=== PATIENT | female | born 1985 | race Two or more races ===

== ENCOUNTER 2023-06-17 20:01 | Emergency (ER) | payer OTHER | END 2023-06-17 20:37 | disposition home or self-care (01) | LOC: MW.ED 20:01 | DX: K11.6 Mucocele of salivary gland (principal) | CPT/HCPCS: 99282; 99283 ==

== ENCOUNTER 2023-08-24 04:20 | Emergency (ER) | payer OTHER ==
[2023-08-24 04:59] LABS: APPEARANCE,URINE CLOUDY; COLOR,URINE BROWN; GLUCOSE,URINE NEGATIVE (NEGATIVE); KETONES,URINE NEGATIVE (NEGATIVE); LEUKOCYTE ESTERASE,URINE MODERATE (NEGATIVE); NITRITE,URINE POSITIVE (NEGATIVE); OCCULT BLOOD,URINE LARGE (NEGATIVE); PH,URINE 6.5 (5.0-8.0); PROTEIN,URINE 100 mg/dL (NEGATIVE)
[2023-08-24 05:05] LABS: BACTERIA,URINE FEW (NEGATIVE); BILIRUBIN,URINE SMALL (NEGATIVE); EPITHELIAL CELLS,URINE FEW (NONE-FEW); RBC,URINE TOO NUMEROUS TO CT (0-2/HPF); WBC,URINE 20-25 (0-5/HPF)
[2023-08-24] MEDS: Cephalexin 500 MG Cap PO ONE (05:30)
[2023-08-24] MEDS: Phenazopyridine 200 MG Tab PO ONE (05:30)
== END 2023-08-24 05:34 | disposition home or self-care (01) ==
LOC: MW.ED 04:20
DX: N39.0 Urinary tract infection, site not specified (principal)
CPT/HCPCS: 81001; 81025; 99283; A9270

== ENCOUNTER 2025-06-20 21:48 | Emergency (ER) | payer OTHER ==
[2025-06-21] MEDS: Ketorolac 30 MG/ML SDV IVPUSH ONE (00:43)
[2025-06-21 00:50] LABS: BASOPHILS ABSOLUTE AUTO 0.01 K/uL (0.00-0.20); BASOPHILS PERCENT AUTO 0.1 % (0.0-1.0); EOSINOPHILS ABSOLUTE AUTO 0.12 K/uL (0.00-0.45); EOSINOPHILS PERCENT AUTO 1.5 % (0.0-6.0); IMMATURE GRAN ABSOLUTE AUTO 0.02 K/uL (0.00-0.05); IMMATURE GRAN PERCENT AUTO 0.2 % (0.0-0.4); LYMPHOCYTES ABSOLUTE AUTO 2.36 K/uL (1.00-4.80); LYMPHOCYTES PERCENT AUTO 29.1 % (24.0-44.0); MEAN PLATELET VOLUME 9.0 fL (9.4-12.3); MONOCYTES ABSOLUTE AUTO 0.78 K/uL (0.00-0.80); MONOCYTES PERCENT AUTO 9.6 % (0.0-8.0); NEUTROPHILS ABSOLUTE AUTO 4.82 K/uL (1.80-7.70); NEUTROPHILS PERCENT AUTO 59.5 % (41.0-71.0); NRBC ABSOLUTE 0.00 K/uL (0.00-0.02); NRBC PERCENT 0.0 /100WBC (0.0-0.2); PLATELET COUNT,PLT 347 K/uL (150-400); RED BLOOD CELL COUNT 5.01 M/uL (4.10-5.30); WHITE BLOOD CELL COUNT,WBC 8.11 K/uL (3.9-11.3)
[2025-06-21 01:04] LABS: INR 1.04 (0.86-1.11); PTT,PARTIAL THROMBOPLSTIN TIME 27.7 SEC (23.9-30.7)
[2025-06-21 01:27] LABS: A/G RATIO 0.9 (0.9-1.6); ALANINE AMINOTRANSFERASE,ALT 30.0 IU/L (14-63); ASPARTATE AMNIOTRANSFERASE,AST 20.0 IU/L (15-37); BILIRUBIN TOTAL 0.4 mg/dL (0.2-1.0); BLOOD UREA NITROGEN,BUN 12.0 mg/dL (7.0-18.0); CARBON DIOXIDE,CO2 28.9 mmol/L (21.0-32.0); CHLORIDE,CL 102.0 mmol/L (98-107); CREATININE 0.8 mg/dL (0.6-1.0); EST CRCL DRUG DOSING (CG) 89.26 mL/min; GLUCOSE RANDOM 98.0 mg/dL (74-106); POTASSIUM,K 3.5 mmol/L (3.5-5.1); PROTEIN TOTAL,TP 7.4 g/dL (6.4-8.2); SODIUM,NA 138.0 mmol/L (136-145)
[2025-06-21 01:28] LABS: ESTIMATED GFR 97.0 mL/min (>60)
[2025-06-21] MEDS: Iopamidol 755 MG/ML 500 ML Multipack Bottle IVPUSH ONE (01:42)
== END 2025-06-21 02:32 | disposition home or self-care (01) ==
LOC: MW.ED 21:48
DX: M54.50 Low back pain, unspecified (principal); M54.2 Cervicalgia; R10.84 Generalized abdominal pain; Z79.899 Other long term (current) drug therapy; V49.49XA Driver injured in collision with other motor vehicles in traffic accident, initial encounter; Y93.89 Activity, other specified
CPT/HCPCS: 36415; 70450; 72125; 74177; 80053; 83690; 84703; 85025; 85610; 85730; 96374; 99284; A9270; J1885; Q9967; 99283